=== PATIENT | male | born 1960 | race Caucasian/White ===

== ENCOUNTER → 2018-04-15 09:09 | Outpatient (CLI) | payer OTHER, SELFPAY ==
[2018-04-15 10:33] LABS: Alanine Aminotransferase 39 U/L (12-78); Albumin Level 3.8 gm/dL (3.4-5.0); Albumin/Globulin Ratio 1.2 (1.1-1.8); Alkaline Phosphatase 90 U/L (46-116); Anion Gap 8.8 mEq/L (5-15); Aspartate Amino Transferase 18 U/L (15-37); Bilirubin,Total 0.9 mg/dL (0.2-1.0); Blood Urea Nitrogen 11 mg/dL (7-18); Calcium 8.8 mg/dL (8.5-10.1); Carbon Dioxide 32 mmol/L (21.0-32.0); Chloride 102 mmol/L (98-107); Chol/HDL Ratio 2.7 (1-3.5); Cholesterol 164 mg/dL (140-200); Creatinine,Serum 0.61 mg/dL (0.70-1.30); Estimated Glomerular Filt Rate 135 ml/min (>60); GFR (African American) 164 ML/MIN (>60); Globulin 3.2 gm/dl (1.3-3.2); Glucose 88 mg/dL (74-106); HDL Cholesterol 61 mg/dL (27-67); LDL Cholesterol 93 mg/dL (0-130); Potassium 4.8 mmoL/L (3.5-5.1); Sodium 138 mmol/L (136-145); Thyroid Stimulating Hormone 1.08 uIU/ml (0.358-3.740); Triglycerides 52 mg/dL (30-200); VLDL Cholesterol 10 mg/dL (0-40)
== END ==
PROVIDERS: PCP Family Medicine; Visit Provider Physician Assistant
DX: Z00.00 Encounter for general adult medical examination without abnormal findings (principal); I25.10 Atherosclerotic heart disease of native coronary artery without angina pectoris; I10 Essential (primary) hypertension; E78.5 Hyperlipidemia, unspecified
CPT/HCPCS: 36415; 80053; 80061; 84443

== ENCOUNTER → 2018-07-08 08:00 | Outpatient (CLI) | payer OTHER, SELFPAY ==
[2018-07-08 11:55] LABS: Chol/HDL Ratio 2.6 (1-3.5); Cholesterol 156 mg/dL (140-200); HDL Cholesterol 60 mg/dL (27-67); LDL Cholesterol 84 mg/dL (0-130); Triglycerides 58 mg/dL (30-200); VLDL Cholesterol 12 mg/dL (0-40)
== END ==
PROVIDERS: Visit Provider Physician Assistant
DX: E78.5 Hyperlipidemia, unspecified (principal); I25.10 Atherosclerotic heart disease of native coronary artery without angina pectoris
CPT/HCPCS: 36415; 80061

== ENCOUNTER → 2019-03-01 07:10 | Outpatient (CLI) | payer OTHER, SELFPAY ==
--- NOTE | 2019-03-01 07:11 | NM_ITS ---
APPROVED REPORT Epic Ambulatory Analyst: Corneliusiscivett myocardial perfusion imaging Indication for the test: Coronary artery disease, hypertension, tobacco use, family history. Procedure: Patient received 0.4 mg of intravenous Lexiscan, resting heart rate was 61 bpm resting blood pressure 142/84, with Lexiscan maximum heart rate achieved was 98 bpm which is less than 85% of the maximum predicted heart rate in the blood pressure was 120/73. With Lexiscan patient complained of shortness of breath. Electrocardiogram: The resting electrocardiogram shows sinus rhythm, with Lexiscan there is less than 1.[address] segment depression noted from the baseline EKG. The EKG portion of the Lexiscan Myoview is nondiagnostic. Cardiac stress and resting SPECT images: Cardiac stress and resting images were obtained using technetium 99 Myoview 32.1 mCi at stress and 10.9 mCi at rest. Gated SPECT with analysis of segmental wall motion and Duration of ejection fraction also done. Cardiac stress and resting SPECT images show uniform myocardial activity without segmental perfusion abnormality, computer derived ejection fraction is 57% with no regional wall motion abnormality. Conclusion 1. The EKG portion of the Lexiscan Myoview is nondiagnostic 2. No scintigraphic evidence of reversible ischemia seen, computer derived ejection fraction is 57% with no regional wall motion abnormality, right ventricle is normal size and contractility. 3. Normal Lexiscan Myoview study. Electronically signed by : Mohit Cameron, 03/04/2019 16:15:55
--- NOTE | 2019-03-01 08:21 | HMH.ITSHM ---
Current Home Medications as stated by this patient [employer] [employer] or underwriting sales representative. []LISINOPRIL ATORVASTATIN ATENOLOL ASA
--- NOTE | 2019-03-01 10:39 | CA_ITS ---
APPROVED REPORT EXAM: Comprehensive 2D, Doppler, and color-flow Echocardiogram Risk Developer: Shanna Cortez RDCS Ht: 6 ft 0 in Wt: 173lbs BSA: 2.00 BP: 130/89 mmHg Indications: CAD, stents, mi, bradycardia Left Ventricle Left atrium is mildly enlarged, left ventricle is normal size, mild concentric left ventricular hypertrophy, visually estimated ejection fraction 55% with no regional wall motion abnormality. Grade 1 diastolic dysfunction seen without tissue Doppler evidence of raise left atrial pressure. Right Ventricle Right atrium is mildly enlarged, right ventricle is normal size and contractility. Aortic Valve Aortic valve is minimally thickened and fibrosed., There is no aortic stenosis aortic insufficiency. Mitral Valve Mitral valve is structurally normal, there is mild mitral regurgitation. Tricuspid Valve Tricuspid valve is grossly normal, there is mild tricuspid regurgitation, tricuspid regurgitation jet velocity is inadequate for cannulation of the right ventricular systolic pressure. Pulmonic Valve Pulmonic valve is poorly visualized. Great Vessels Aortic root is normal size. Pericardium No significant pericardial effusion noted. 2D Dimensions Aortic Root 2.90 cm M: 3.1 - 3.7 M-Mode Dimensions RVDd 1.80 cm (0.9-2.6) LA Diam 4.00 cm (1.9-4.0) LVDd 5.80 cm (3.5-5.7) Ao Diam 2.90 cm (2.0-3.7) LVDs 4.20 cm (3.5-5.7) AV Cusp 1.80 cm (1.5-2.6) IVSd 1.00 cm (0.6-1.1) PWd 0.80 cm (0.6-1.1) EF (Teich) 59.50% LV Diastology E/A Ratio 1.0 Mitral Valve MV E Max Onrth. 59.20 (40-130 cm/s) MV A Velocity 58.70 (40-130 cm/s) E/A Ratio 1.00 Conclusion 1. Mild biatrial enlargement, normal left ventricular size, mild concentric left ventricular hypertrophy, visually estimated ejection fraction 55% with no regional wall motion abnormality, grade 1 diastolic dysfunction seen without tissue Doppler evidence of raise left atrial pressure. 2. Mild mitral and tricuspid regurgitation 3. No significant pericardial effusion noted. Electronically signed by : Mohit Cameron, 03/05/2019 15:04:30
== END ==
PROVIDERS: PCP Family Medicine; Visit Provider Internal Medicine Cardiovascular Disease
DX: I25.10 Atherosclerotic heart disease of native coronary artery without angina pectoris (principal); E78.5 Hyperlipidemia, unspecified; I10 Essential (primary) hypertension; I25.2 Old myocardial infarction; R00.1 Bradycardia, unspecified; Z95.5 Presence of coronary angioplasty implant and graft
CPT/HCPCS: 78452; 93017; 93306; A9502; J2785

== ENCOUNTER → 2020-03-23 10:28 | Outpatient (CLI) | payer OTHER, SELFPAY ==
[2020-03-23 11:18] LABS: Alanine Aminotransferase 41 U/L (12-78); Albumin Level 4.4 g/dl (3.5-5.0); Alkaline Phosphatase 77 U/L (38-126); Aspartate Amino Transferase 38 U/L (17-59); Bilirubin,Direct 0.1 mg/dl (0.0-0.4); Bilirubin,Indirect 0.9 mg/dL (0.0-0.9); Bilirubin,Unconjugated 0.9 mg/dL (0.0-1.1); Cholesterol 143 mg/dl (140-200); HDL Cholesterol 70 mg/dl (40-60); Total Protein,Serum 7.2 g/dl (6.3-8.2); Triglycerides 47 mg/dl (30-150); VLDL Cholesterol 9 mg/dL (0-40)
[2020-03-23 11:28] LABS: Direct LDL Cholesterol 69.06 mg/dL (100-129)
== END ==
PROVIDERS: Visit Provider Internal Medicine Cardiovascular Disease
DX: E78.5 Hyperlipidemia, unspecified (principal); I10 Essential (primary) hypertension; I25.10 Atherosclerotic heart disease of native coronary artery without angina pectoris; I25.2 Old myocardial infarction; Z95.5 Presence of coronary angioplasty implant and graft
CPT/HCPCS: 36415; 80061; 80076

== ENCOUNTER → 2021-04-04 08:46 | Outpatient (CLI) | payer BC, SELFPAY ==
[2021-04-04 10:16] LABS: Alanine Aminotransferase 22 U/L (12-78); Albumin Level 3.9 g/dl (3.5-5.0); Alkaline Phosphatase 66 U/L (38-126); Aspartate Amino Transferase 24 U/L (17-59); Bilirubin,Direct 0.1 mg/dl (0.0-0.4); Bilirubin,Indirect 0.7 mg/dL (0.0-0.9); Bilirubin,Total 0.8 mg/dl (0.2-1.3); Bilirubin,Unconjugated 0.7 mg/dL (0.0-1.1); Chol/HDL Ratio 2.5 (1-3.5); Cholesterol 153 mg/dl (140-200); HDL Cholesterol 61 mg/dl (40-60); Total Protein,Serum 6.7 g/dl (6.3-8.2); Triglycerides 45 mg/dl (30-150); VLDL Cholesterol 9 mg/dL (0-40)
[2021-04-04 10:26] LABS: Direct LDL Cholesterol 80.83 mg/dL (100-129)
== END ==
PROVIDERS: Visit Provider Internal Medicine Cardiovascular Disease
DX: I25.10 Atherosclerotic heart disease of native coronary artery without angina pectoris (principal); I10 Essential (primary) hypertension; E78.2 Mixed hyperlipidemia; I25.2 Old myocardial infarction
CPT/HCPCS: 36415; 80061; 80076

== ENCOUNTER → 2021-07-25 11:40 | Outpatient (CLI) | payer BC, SELFPAY | PROVIDERS: PCP Family Medicine; Visit Provider Nurse Practitioner | DX: U07.1 COVID-19 (principal) | CPT/HCPCS: C9803; U0003; U0005 ==

== ENCOUNTER → 2022-04-29 08:05 | Outpatient (CLI) | payer BC, SELFPAY ==
[2022-04-29 10:51] LABS: Basophils # 0.2 K/mm3 (0-0.2); Basophils % 3.7 % (0.1-2.0); Eosinophils # 0.9 K/mm3 (0.0-0.4); Eosinophils % 14.2 % (0.1-12.0); Hematocrit 46.6 % (42.0-52.0); Hemoglobin 15.6 g/dL (14.1-18.0); Lymphocytes # 0.2 K/mm3 (0.7-4.5); Lymphocytes % 3.1 % (10-50); Mean Corpuscular HGB Conc 33.4 g/dL (31.8-35.4); Mean Corpuscular Hemoglobin 33.8 pg (27.0-31.2); Mean Corpuscular Volume 101.4 fl (80-94); Mean Platelet Volume 9.6 fl (7.4-10.4); Monocytes # 0.6 K/mm3 (0.1-1.0); Monocytes % 9.5 % (1.7-9.3); Neutrophils # 4.5 K/mm3 (1.8-7.8); Neutrophils % 69.5 % (37.0-80.0); Platelet Count 222 K/mm3 (142-424); Red Cell Distribution Width 13.2 % (11.5-17.5); White Blood Count 6.5 K/mm3 (4.8-10.8)
[2022-04-29 11:42] LABS: Alanine Aminotransferase 26 U/L (12-78); Albumin Level 3.9 g/dl (3.5-5.0); Alkaline Phosphatase 89 U/L (38-126); Anion Gap 11.5 mEq/L (5-15); Aspartate Amino Transferase 27 U/L (17-59); Bilirubin,Indirect 0.6 mg/dL (0.0-0.9); Bilirubin,Total 0.6 mg/dl (0.2-1.3); Bilirubin,Unconjugated 0.5 mg/dL (0.0-1.1); Blood Urea Nitrogen 10 mg/dl (9-20); Calcium 8.7 mg/dl (8.4-10.2); Carbon Dioxide 32 mmol/L (22.0-30.0); Chloride 97 mmol/L (98-107); Chol/HDL Ratio 2.8 (1-3.5); Cholesterol 176 mg/dl (140-200); Estimated Glomerular Filt Rate 114 ml/min (>60); GFR (African American) 138 ML/MIN (>60); Glucose 69 mg/dl (74-100); HDL Cholesterol 63 mg/dl (40-60); Potassium 4.5 mmoL/L (3.5-5.1); Sodium 136 mmol/L (136-145); Total Protein,Serum 6.5 g/dl (6.3-8.2); Triglycerides 58 mg/dl (30-150); VLDL Cholesterol 12 mg/dL (0-40)
[2022-04-29 11:53] LABS: Direct LDL Cholesterol 94.38 mg/dL (100-129)
[2022-04-29 11:58] LABS: Free T4 (Free Thyroxine) 0.77 ng/dl (0.78-2.19)
[2022-04-29 12:12] LABS: Thyroid Stimulating Hormone 2.38 uIU/mL (0.465-4.68)
== END ==
PROVIDERS: PCP Family Medicine; Visit Provider Physician Assistant
DX: R06.00 Dyspnea, unspecified (principal); R00.1 Bradycardia, unspecified; I25.10 Atherosclerotic heart disease of native coronary artery without angina pectoris; I11.9 Hypertensive heart disease without heart failure; I25.2 Old myocardial infarction; E78.2 Mixed hyperlipidemia; E11.9 Type 2 diabetes mellitus without complications; I63.9 Cerebral infarction, unspecified; Z95.5 Presence of coronary angioplasty implant and graft
CPT/HCPCS: 36415; 80048; 80061; 80076; 84439; 84443; 85025

== ENCOUNTER → 2022-11-05 08:23 | Outpatient (CLI) | payer BC, SELFPAY ==
[2022-11-05 08:57] LABS: Basophils # 0.1 K/mm3 (0-0.2); Basophils % 1.8 % (0.1-2.0); Eosinophils # 0.2 K/mm3 (0.0-0.4); Eosinophils % 2.8 % (0.1-12.0); Hematocrit 47.9 % (42.0-52.0); Hemoglobin 15.8 g/dL (14.1-18.0); Lymphocytes # 1.6 K/mm3 (0.7-4.5); Lymphocytes % 27.7 % (10-50); Mean Corpuscular HGB Conc 32.9 g/dL (31.8-35.4); Mean Corpuscular Hemoglobin 32.5 pg (27.0-31.2); Mean Corpuscular Volume 98.7 fl (80-94); Mean Platelet Volume 9.1 fl (7.4-10.4); Monocytes # 0.5 K/mm3 (0.1-1.0); Neutrophils # 3.5 K/mm3 (1.8-7.8); Neutrophils % 59.8 % (37.0-80.0); Platelet Count 176 K/mm3 (142-424); Red Blood Count 4.86 M/mm3 (4.60-6.20); Red Cell Distribution Width 13.3 % (11.5-17.5); White Blood Count 5.9 K/mm3 (4.8-10.8)
[2022-11-05 09:38] LABS: Alanine Aminotransferase 37 U/L (12-78); Albumin Level 4.2 g/dl (3.5-5.0); Alkaline Phosphatase 70 U/L (38-126); Anion Gap 11.1 mEq/L (5-15); Aspartate Amino Transferase 33 U/L (17-59); Bilirubin,Indirect 0.7 mg/dL (0.0-0.9); Bilirubin,Total 0.7 mg/dl (0.2-1.3); Bilirubin,Unconjugated 0.8 mg/dL (0.0-1.1); Blood Urea Nitrogen 12 mg/dl (9-20); Calcium 8.8 mg/dl (8.4-10.2); Carbon Dioxide 30 mmol/L (22.0-30.0); Chloride 97 mmol/L (98-107); Chol/HDL Ratio 2.7 (1-3.5); Cholesterol 152 mg/dl (140-200); Estimated Glomerular Filt Rate 114 ml/min (>60); GFR (African American) 137 ML/MIN (>60); Glucose 91 mg/dl (74-100); HDL Cholesterol 57 mg/dl (40-60); Potassium 5.1 mmoL/L (3.5-5.1); Sodium 133 mmol/L (136-145); Total Protein,Serum 6.7 g/dl (6.3-8.2); Triglycerides 49 mg/dl (30-150); VLDL Cholesterol 10 mg/dL (0-40)
[2022-11-05 09:49] LABS: Direct LDL Cholesterol 79.27 mg/dL (100-129)
[2022-11-05 09:55] LABS: Free Thyroxine Index 2.2 ug/dL (5.93-13.13); T4 (Thyroxine) 6.2 ug/dl (5.53-11.0); Triiodothryronine (T3) Uptake 35 % (23.5-40.5)
[2022-11-05 10:09] LABS: Thyroid Stimulating Hormone 1.54 uIU/mL (0.465-4.68)
== END ==
PROVIDERS: PCP Family Medicine; Visit Provider Physician Assistant
DX: R00.1 Bradycardia, unspecified (principal); I25.10 Atherosclerotic heart disease of native coronary artery without angina pectoris; I25.2 Old myocardial infarction; I10 Essential (primary) hypertension; E78.2 Mixed hyperlipidemia; I51.89 Other ill-defined heart diseases; Z95.5 Presence of coronary angioplasty implant and graft; Z79.899 Other long term (current) drug therapy
CPT/HCPCS: 36415; 80048; 80061; 80076; 84436; 84443; 84479; 85025

== ENCOUNTER 2024-06-03 07:39 | Outpatient (CLI) | payer MEDICARE, SELFPAY ==
--- NOTE | 2024-06-03 07:48 | CA_ITS ---
APPROVED REPORT EXAM: Comprehensive 2D, Doppler, and color-flow Echocardiogram Flare Breaker: Patience Hicks CRT Ht: 6 ft 0 in Wt: 181lbs BSA: 2.04 BP: 132/78 mmHg Indications: Palpitations, CAD, Hyperlipidemia, Hypertension/HDD 2D Dimensions Left Atrium 3.92 cm LVEF (Nieto's) 61.80 % LVOT 1.91 cm (M/F) 1.5-2.5 LV Volume 62.90 mL LA Volume 43.10 mL LA Volume Index 21.10 mL/m2 (M/F) 16-34 EF AP4 57.00 % EF AP2 60.0 % EF BP 61.8 % GL Strain -17.0 % M-Mode Dimensions RVDd 2.71 cm (0.9-2.6) LVDd 4.79 cm (3.5-5.7) Ao Diam 3.83 cm (2.0-3.7) LVDs 3.11 cm (3.5-5.7) IVSd 1.46 cm (0.6-1.1) PWd 0.89 cm (0.6-1.1) EF (Teich) 64.30% FS 35.10% EDV (Teich) 107.00 mL TAPSE 1.68 (<1.7) ESV (Teich) 38.20 mL LV Diastology E Decel Time 156 (160-240 msec) E/A Ratio 1.32 MED E' 7.5 (>= 7 cm/sec) MED A' 8.60 cm/s E'/MED E' Ratio 10.41 (<= 14) LAT E' 8.7 (>= 10 cm/sec) LAT A' 10.50 cm/s E/LAT E' Ratio 8.98 (<= 14) Aortic Valve AoV Peak North. 110.0 (50-130 cm/s) AO Peak GR. 4.90 mmHg Mitral Valve MV E Max North. 78.0 (40-130 cm/s) MV A Velocity 59.0 (40-130 cm/s) E/A Ratio 1.32 MV Decel. Time 156 (160-240 ms) Tricuspid Valve TR P. Velocity 193.00 cm/s RAP Estimate 10.00 mmHg RVSP 25.00 mmHg Left Ventricle The left ventricle is normal size. The left ventricular systolic function is normal. The left ventricular ejection fraction is within the normal range. There is normal left ventricular wall thickness. There is normal LV segmental wall motion. The left ventricular diastolic function is normal. LVEF is 55%. Right Ventricle Right ventricle is mildly dilated. The right ventricular systolic function is normal. Atria The left atrium size is normal. The right atrium size is normal. There is no Doppler evidence of interatrial shunt. Aortic Valve The aortic valve opens well. There is no aortic valvular stenosis. No aortic regurgitation is present. Mitral Valve The mitral valve is normal in structure. No evidence of mitral valve stenosis. There is no mitral valve regurgitation noted. Tricuspid Valve The tricuspid valve leaflets are thin and pliable. Trace tricuspid regurgitation. There is insufficient TR jet to estimate RVSP. Pulmonic Valve The pulmonary valve is normal in structure. Trace pulmonic regurgitation. Great Vessels The aortic root is normal in size. The ascending aorta is normal in size. IVC is normal in size and collapses >50% with inspiration. Pericardium There is no pericardial effusion. Other Information Study Quality: Adequate Conclusion Normal biventricular systolic function. Mild RV dilation. No significant valvular stenosis or regurgitation. Electronically signed by : Rhoda Cardenas MD 06/14/2024 12:12:35
== END 2024-06-03 23:59 | disposition home or self-care (01) ==
PROVIDERS: PCP Family Medicine; Visit Provider Nurse Practitioner Family
DX: I51.7 Cardiomegaly (principal); I25.10 Atherosclerotic heart disease of native coronary artery without angina pectoris
CPT/HCPCS: 93306

== ENCOUNTER 2025-01-05 09:02 | Outpatient (CLI) | payer BC, SELFPAY ==
--- OUTSIDE RECORDS SUMMARY | 2024-06-24 07:30 | XMS_ITS ---
Author Organization [facility] Address [address] [facility] [address] [place] [phone] Care Team Providers Care Core Microarchitect Name Role Phone Kj Barragan Primary Care Provider Allergies No Known Allergies REASON FOR VISIT HEMORRHOID Medications Medication SIG (Take, Route, Frequency, Duration) Notes Start Date End Date Status Lisinopril 2.5 MG 1 tablet Orally Two times a day Active Atorvastatin Calcium 80 MG 1 tablet Oral ly Once a day for 30 day(s) Active Atenolol 25 MG 1 tablet Orally Once a day for 30 day(s) Active Aspirin 81 81 MG 1 tablet Orally Once a day for 30 day(s) Active Anusol-HC 25 MG 1 suppository Rectal Two times a day 06/24/2024 Active Vital Signs Blood pressure systolic 132 mm Hg 06/24/20 24 Blood pressure diastolic 80 mm Hg 024 Heart Rate 53 /min 06/24/2024 Height 72 in 06/24/2024 Weight 185.4 lbs 06/24/2024 BMI 25.14 kg/m2 06/24/2024 Encounters Encounter Location Date Provider Diagnosis [facility] [address] [place] [phone] 06/24/2024 Kj Barragan Hemorrhoid K6 4.9 Assessments Encounter Date Diagnosis (ICD Code) Assessment Notes Treatment Notes Treatment Clinical Notes Section Notes 06/24/2024 Hemorrhoid (ICD-10 - K64.9) High-fiber diet. Avoid constipation Plan Of Treatment Medication Medication Name Sig Start Date Stop Date Notes Anusol-HC 25 MG 1 suppository Rectal Two times a day 06/24 Treatment Notes Assessment Notes Hemorrhoid High-fiber diet. Eliazar id constipation Next Appt Details Follow Up: 1 Week, prn, Reas on: Progress Notes * Alfa CATHERINEDOB:1960 ([age] yo M)Acc No.[id number]:06/24/2024 Progress Notes Patient: Alfa HERNÁNDEZ Provider: Kj Barragan M.D. :1960 A ge:63 Y S ex:Male Date:06/24/2024 Address:[address] [place] [address] [place], [id number] Subjective: * Chief Complaints: * 1 . HEMORRHOID. * HPI: G astroenterology: 63 year old male presents with c/o hemorrhoid P t presents today with c/o hemorrhoids that he noticed a couple days ago. Denies pain. He has had scant bleeding. Denies other changes in his bowel habits. Specifically denies constipation issues.. * ROS: C ARDIOLOGY: no C hest pain. n o P alpitations. G ASTROENTEROLOGY: no N ausea. n o V omiting. D iarrhea y es,?yesterday day morning once. U ROLOGY: no D ifficulty urinating. n o B lood in urine. * Medical History: H eart murmur. * Surgical History: C ardiac Stent following Heart Attack 2010. * Family History: F ather: , heart. M other: , emphysema. 1 brother(s) . 2 son(s) . .? * Social History: C affeine: yes, frequency:3-4 cups coffee every day. Exercise: no. Home smoke detector use: yes. Marital Status: . New since last visit: none. Occupation: yes [employer]. Past smoking status: yes, PPD: 1 pk qd , years: 20yrs.,determination:. Occup. exposure: none. Recreational drug use: no. Alcohol: Type: , Frequency: ,Years: , Determination:. Sexually active: yes. Travel ouside [place]: no. * Medications: T aking Aspirin 81 81 MG Tablet Delayed Release 1 tablet Orally Once a day , Taking Atenolol 25 MG Tablet 1 tablet Orally Once a day , Taking Atorvastatin Calcium 80 MG Tablet 1 tablet Orally Once a day , Taking Lisinopril 2.5 MG Tablet 1 tablet Orally Two times a day , Discontinued Singulair 10 MG Tablet 1 tab(s) orally once a day (in the evening) , Discontinued Loratadine 10 MG Tablet 1 tab(s) orally once a day , Discontinued Mometasone Furoate 50 MCG/ACT Suspension 2 spray(s) intranasally once a day , Discontinued Benzonatate 100 MG Capsule 1 cap(s) orally 3 times a day , Medication List reviewed and reconciled with the patient * Allergies: N .K.D.A. Objective: * Vitals: W t:185.4, Temp:98.0, BP:132/80, HR:53, Nurse:JOSSY, Ht: 72, BMI:25.14. * Examination: G astroenterology: Rectal exam: S mall, tender, external hemorrhoid noted.? No bleeding. Assessment: * Assessment: 1. H emorrhoid - K64.9 (Primary) Plan: * Treatment: * Procedure Codes: G 2211 Complex e/m visit add on * Follow Up: 1 Week, prn * Billing Information: * Visit Code: 59191 Office Visit, Est Pt., Level 3. * Procedure Codes: G2211 Complex e/m visit add on. * Electronic signature of Kj Barragan MD on 01/05/2025 at 09:05 AM EDT Sign off status: Pending * Provider: Kj Barragan M.D. Date: 08/25/2023 Generated for Marv mcmullen/Joshua/Solitting on: 0 01/05/2025 09:05 AM EDT History and Physical Notes * HPI (History of Present Illness) Category Sub-Category Detail Notes Category Not es Gastroenterology hemorrhoid Pt presents tod ay with c/o hemorrhoids that he noticed a couple days ago. Denies pain. He has had scant bleeding. Denies other changes in his bowel habits. Specifically denies constipation issues. Examination Category Sub-Category Detail Notes Category Not es Gastroenterology Rectal exam: Small, tender, external hemorrhoid noted. No bleeding
--- OUTSIDE RECORDS SUMMARY | 2025-01-05 09:06 | XMS_ITS | Patient Health Record ---
Author Organization [facility] Address [address] [facility] [address] [place] [phone] Care Team Providers Care Roofer Applicator Name Role Phone Kj Barragan Primary Care Provider Allergies No Known Allergies Reason For Referral No Information Medications Medication SIG (Take, Route, Frequency, Duration) Notes Start Date End Date Status Atorvastatin Calcium 80 MG 1 tablet Oral ly Once a day for 30 day(s) Active Lisinopril 2.5 MG 1 tablet Orally Two times a day Active Atenolol 25 MG 1 tablet Orally Once a day for 30 day(s) Active Aspirin 81 81 MG 1 tablet Orally Once a day for 30 day(s) Active Anusol-HC 25 MG 1 suppository Rectal Two times a day 06/24/2024 Active Vital Signs Heart Rate 53 /min 06/24/2024 Blood pressure diastolic 80 mm Hg 06/24/2024 Height 72 in 06/24/2024 Blood pressure systolic 132 mm Hg 06/24/2024 Weight 185.4 lbs 06/24/2024 BMI 25.14 kg/m2 06/24/2024 Encounters Encounter Location Date Provider Diagnosis [facility] [address] [place] [phone] 06/24/2024 Kj Barragan Hemorrhoid K6 4.9 [facility] [address] [place] [phone] 06/24/2024 Kj Barragan [facility] [address] [facility] [address] [place] [phone] 06/25/2024 Kj Barragan Assessments Encounter Date Diagnosis (ICD Code) Assessment Notes Treatment Notes Treatment Clinical Notes Section Notes 06/24/2024 Hemorrhoid (ICD-10 - K64.9) High-fiber diet. Avoid constipation Plan Of Treatment No Information Insurance Providers Payer Name Payer Address Payer Phone Subscriber Number Group Number Insured Name Patient Relationship to Insured Coverage Start Date Coverage End Date MEDICARE PART B [address] [address] [place] [id number] [employer] Self - patient is the insured [facility] [address] [place] [address] [id number] [employer] Self - patient is the insured Medical (General) History Medical History History ICD Code heart murmur Surgical History Surgery Date(Month/Year) Cardiac Stent following Heart Attack 201 1
[2025-01-05 09:54] LABS: Basophils # 0.1 K/mm3 (0-0.2); Basophils % 1.4 % (0.1-2.0); Eosinophils # 0.4 Kmm3 (0.0-0.4); Eosinophils % 7.2 % (0.1-12.0); Hematocrit 48.7 % (42.0-52.0); Hemoglobin 17.1 g/dL (14.1-18.0); Immature Granulocytes # 0.01 10^3uL; Immature Granulocytes % 0.2 %; Lymphocytes # 1.7 K/mm3 (0.7-4.5); Lymphocytes % 29.3 % (10-50); Mean Corpuscular HGB Conc 35.1 g/dL (31.8-35.4); Mean Corpuscular Hemoglobin 33.3 pg (27.0-31.2); Mean Corpuscular Volume 94.7 fl (80-94); Mean Platelet Volume 10.8 fl (7.4-10.4); Monocytes # 0.5 K/mm3 (0.1-1.0); Monocytes % 8.8 % (1.7-9.3); Neutrophils % 53.1 % (37.0-80.0); Nucleated Red Blood Cells # 0 10^3/uL; Nucleated Red Blood Cells % 0 %; Platelet Count 173 K/mm3 (142-424); Red Blood Count 5.14 M/mm3 (4.60-6.20); Red Cell Distribution Width-SD 42.1 fL; White Blood Count 5.7 K/mm3 (4.8-10.8)
[2025-01-05 10:18] LABS: Albumin Level 4.7 g/dl (3.5-5.0); Chloride 100 mmol/L (98-107)
[2025-01-05 10:19] LABS: Potassium 4.7 mmoL/L (3.5-5.1); Sodium 136 mmol/L (136-145)
[2025-01-05 10:21] LABS: Alanine Aminotransferase 58 U/L (12-78); Anion Gap 9.7 mEq/L (5-15); Aspartate Amino Transferase 43 U/L (17-59); Bilirubin,Unconjugated 0.4 mg/dL (0.0-1.1); Blood Urea Nitrogen 8 mg/dl (9-20); Carbon Dioxide 31 mmol/L (22.0-30.0); Estimated Glomerular Filt Rate 135 ml/min (>60); GFR (African American) 163 ML/MIN (>60)
[2025-01-05 10:22] LABS: Alkaline Phosphatase 91 U/L (38-126); Bilirubin,Direct 0.2 mg/dl (0.0-0.4); Bilirubin,Indirect 0.5 mg/dL (0.0-0.9); Bilirubin,Total 0.7 mg/dl (0.2-1.3); Calcium 9.3 mg/dl (8.4-10.2); Chol/HDL Ratio 3.5 (1-3.5); Cholesterol 181 mg/dl (140-200); Glucose 101 mg/dl (74-100); HDL Cholesterol 51 mg/dl (40-60); Magnesium 2.1 mg/dl (1.6-2.3); Total Protein,Serum 7.7 g/dl (6.3-8.2); Triglycerides 103 mg/dl (30-150); VLDL Cholesterol 21 mg/dL (0-40)
[2025-01-05 10:33] LABS: Direct LDL Cholesterol 89.85 mg/dL (100-129)
[2025-01-05 10:39] LABS: Free T4 (Free Thyroxine) 0.85 ng/dl (0.78-2.19)
[2025-01-05 10:53] LABS: Thyroid Stimulating Hormone 1.54 uIU/mL (0.465-4.68)
== END 2025-01-05 23:59 | disposition home or self-care (01) ==
PROVIDERS: PCP Family Medicine; Visit Provider Physician Assistant
DX: I25.10 Atherosclerotic heart disease of native coronary artery without angina pectoris (principal); E78.5 Hyperlipidemia, unspecified; F17.209 Nicotine dependence, unspecified, with unspecified nicotine-induced disorders; I49.1 Atrial premature depolarization; I11.9 Hypertensive heart disease without heart failure; Z95.5 Presence of coronary angioplasty implant and graft
CPT/HCPCS: 36415; 80048; 80061; 80076; 83735; 84439; 84443; 85025